=== PATIENT | female | born 1955 | race Caucasian/White ===

== ENCOUNTER 2016-06-05 10:15 | Outpatient (RCR) | payer OTHER ==
[~2016-06-05 10:15] MED LIST: ADIPEX-P37.5 MG PO; ADVIL200 MG PO; FIORICET W/CODE1 CA1 PO; FLEXERIL 1010 MG/TAB PO; LEVAQUIN 5500 MG/TA1 PO; LEVAQUIN 750MG750 M1 PO; LUMIGAN 2.5 ML2.5 ML OP; MACROBID 1100 MG/CAP PO; MOTRIN 600600 MG/TAB PO; NORCO 325 MG-51 TAB PO; PERCOCET 325 MG1 TA2 PO; PYRIDIUM200 M1 PO; SYNTHROID0.1 MG/TAB PO; SYNTHROID0.125 MG/T PO; ULTRAM 50MG TAB50 MG PO; VICODIN 5/5001 UDTAB PO; ZOFRAN 4MG T4 MG/TAB PO; ZOFRAN8 MG PO; ZYRTEC5 MG PO
== END 2016-06-19 | disposition home or self-care (01) ==
LOC: WSOT
DX: M66.241 Spontaneous rupture of extensor tendons, right hand (principal)

== ENCOUNTER 2016-06-25 09:05 | Outpatient (RCR) | payer OTHER | END 2016-06-25 09:07 | LOC: WSOT 09:05 | DX: Z47.89 Encounter for other orthopedic aftercare (principal); S66.211D Strain of extensor muscle, fascia and tendon of right thumb at wrist and hand level, subsequent encounter; X58.XXXD Exposure to other specified factors, subsequent encounter ==

== ENCOUNTER → 2017-05-26 | Outpatient (CLI) | payer BC | LOC: MC.RAD 05-22 10:20 | DX: Z12.31 Encounter for screening mammogram for malignant neoplasm of breast (principal) ==

== ENCOUNTER 2018-11-30 16:45 | Outpatient (RCR) | payer BC | END 2019-01-03 | disposition still patient (30) | LOC: WSC | DX: M48.062 Spinal stenosis, lumbar region with neurogenic claudication (principal); M54.16 Radiculopathy, lumbar region; M43.16 Spondylolisthesis, lumbar region ==

== ENCOUNTER → 2019-01-19 | Outpatient (CLI) | payer BC | LOC: COL.RAD 10:05 | DX: K80.20 Calculus of gallbladder without cholecystitis without obstruction (principal); K76.0 Fatty (change of) liver, not elsewhere classified ==

== ENCOUNTER 2019-02-13 01:10 | Emergency (ER) | payer BC ==
[~2019-02-13] VITALS: Ht 167.6 cm; Wt 93.0 kg
[2019-02-13 01:22] VITALS: BP 131/93; TEMP 97.4
[2019-02-13] MEDS ORDERED: PROTONIX 40MG T40 MG PO (03:03)
[2019-02-13] MEDS ORDERED: PROZAC 20MG20 MG PO (03:04)
[2019-02-13] MEDS ORDERED: SYNTHROID0.112 MG/T PO (03:05)
[2019-02-13] MEDS ORDERED: ZYRTEC 10MG10 MG PO (03:06)
[2019-02-13] MEDS ORDERED: FLONASEALLERGY NS (03:07)
[2019-02-13] MEDS ORDERED: ROBAXIN 75750 MG/TAB PO (03:08)
[2019-02-13] MEDS ORDERED: CARAFATE S1 GM/10 ML PO (03:09)
[2019-02-13] MEDS ORDERED: EXCEDRIN TENSIO1 CAP PO (03:10)
[2019-02-13] MEDS ORDERED: VITAMIN D31000 I1 PO (03:10)
[2019-02-13] MEDS ORDERED: PROMETHAZINE12.5 M5 PO (03:12)
[2019-02-13 04:10] LABS: BASO % 0.4 % (0.0-2.0); EOS % 0.4 % (0-4.0); GRAN # 6.5 (1.4-6.5); GRAN % 77.5 % (42.2-75.2); HEMATOCRIT 41.5 % (37.0-47.0); HEMOGLOBIN 13.7 g/dl (12.5-16.0); LYMPH # 1.4 (1.2-3.4); LYMPH % 16.3 % (20.0-51.0); MEAN CELL VOLUME 89 fl (80.0-100.0); MEAN CORPUSCULAR HEMOGLOBIN 30 pg (27.0-31.0); MEAN CORPUSCULAR HGB CONC 33 g/dl (33.0-37.0); MEAN PLATELET VOLUME 10.9 fl (7.4-10.4); MONO # 0.4 (0.1-0.6); MONO % 4.9 % (1.7-9.3); PLATELET COUNT 281 K/mm3 (130-400); RED BLOOD COUNT 4.65 M/mm3 (4.10-5.30); REDCELL DISTRIBUTION WIDTH-CV 13.2 % (11.5-14.5)
[2019-02-13 04:21] LABS: ALBUMIN 4.7 gm/dL (3.5-5.0); BILIRUBIN,TOTAL 0.4 mg/dL (0.0-1.0); CALCIUM 9.9 mg/dL (8.4-10.2); CREATININE, serum 0.79 (0.52-1.25); POTASSIUM 3.9 mmol/L (3.4-5.0)
[2019-02-13 05:07] VITALS: PULSE 78
== END 2019-02-13 05:07 | disposition home or self-care (01) ==
LOC: COL.ER 01:10
PROVIDERS: Emergency Medicine
DX: R04.0 Epistaxis (principal); K21.9 Gastro-esophageal reflux disease without esophagitis; Z79.51 Long term (current) use of inhaled steroids

== ENCOUNTER → 2022-05-21 | Outpatient (CLI) | payer BC ==
[~2022-05-21] MED LIST changes: +CARAFATE S1 GM/10 ML PO; +EXCEDRIN TENSIO1 CAP PO; +FLONASEALLERGY NS; +PROMETHAZINE12.5 M5 PO; +PROTONIX 40MG T40 MG PO; +PROZAC 20MG20 MG PO; +ROBAXIN 75750 MG/TAB PO; +SYNTHROID0.112 MG/T PO; +VITAMIN D31000 I1 PO; +ZYRTEC 10MG10 MG PO
== END ==
LOC: MC.RAD 16:37
DX: Z12.31 Encounter for screening mammogram for malignant neoplasm of breast (principal)